=== PATIENT | female | born 1970 | race African-American/Black ===

== ENCOUNTER 2022-02-10 09:42 | Outpatient (CLI) | payer MEDICARE, MEDICAID | END 2022-02-10 09:43 | disposition home or self-care (01) | LOC: CSHMAMMO 09:42 | PROVIDERS: ATTEND Nurse Practitioner Adult Health | DX: Z08 Encounter for follow-up examination after completed treatment for malignant neoplasm (principal); Z85.3 Personal history of malignant neoplasm of breast | CPT/HCPCS: 77066; G0279 ==